=== PATIENT | female | born 1925 | race Caucasian/White ===

== ENCOUNTER 2016-02-28 15:09 | Inpatient (IN) ==
[2016-02-28] MEDS ORDERED: DILTIAZEM 100 MG VIAL.ADD IV STA (15:35)
--- NOTE | 2016-02-28 15:38 | EKG Report ---
Stationary ECG Study [facility] ER Test Date: 02/28/2016 3:25:10 PM Pat Name: FREDDIE COPELAND Department: Room: Gender: F Gas Charger: Kirk Simeon : 1925 Requested by: Anthony Gutierrez Order Number: [id number] Reading MD: RUEL VAIL Intervals [place] Rate: 116 P: 999 MS: 0 QRS: 81 QRSD: 106 T: 259 QT: 277 QTc: 346 Interpretive Statements ATRIAL FIBRILLATION WITH RAPID VENTRICULAR RESPONSE INCOMPLETE RIGHT BUNDLE BRANCH BLOCK VOLTAGE CRITERIA FOR LVH SHORT QT INTERVAL Electronically Signed On 02-28-16 16:41:12 APPRENTICE TECHNICIAN by RUEL VAIL [email or web address]
[2016-02-28] MEDS ORDERED: DILTIAZEM 100 MG VIAL.ADD IV ONE (15:45)
[2016-02-28] MEDS ORDERED: SODIUM CHLORIDE 0.9% 100 ML IV ONE (15:46)
[2016-02-28] MEDS ORDERED: DILTIAZEM 50 MG/10 ML VIAL IV ONE (15:46)
[2016-02-28 15:51] LABS: Basophils % 0.3 % (0.0-0.8); Eosinophils % 0.4 % (0.00-10.9); Hematocrit 33.1 VOL% (35.7-47.0); Hemoglobin 11.3 GM/DL (12.0-16.0); Immature Granulocytes % 0.4 %; Immature Granulocytes Absolute 0.04 #; Lymphocytes # 0.7 10*3/uL (1.4-4.0); Lymphocytes % 6.6 % (21.3-54.2); Mean Corpuscular HGB Conc 34.1 GM/DL (32-36); Mean Corpuscular Hemoglobin 32 PG (27-34); Mean Platelet Volume 10.7 FL (9.6-12.0); Monocytes # 0.8 10*3/uL (0.11-0.8); Monocytes % 7.7 % (1.7-12.7); Neutrophils # 8.7 10*3/uL (1.4-7.4); Neutrophils % 84.6 % (38.7-73.9); Platelet Count 164 10*3/uL (130-400); Red Blood Count 3.52 10*6/uL (3.8-5.5); Red Cell Distribution Width 12.8 % (9.3-17.3); White Blood Count 10.3 10*3/uL (4.5-13.71)
[2016-02-28] MEDS ORDERED: METOPROLOL TARTRATE 5 MG/5 ML VIAL IV STA (15:52)
[2016-02-28] MEDS ORDERED: METOPROLOL TARTRATE 5 MG/5 ML VIAL IV ONE (15:54)
--- NOTE | 2016-02-28 15:55 | XRay Report ---
Portable chest Date:[02/28/2016] Clinical history: Shortness of breath Comparison: 02/27/2016 Technique: Portable AP sitting chest Findings: Persistent cardiomegaly with left subclavian atrioventricular permanent pacemaker. Progressive parenchymal findings especially in the lower lung zones with ill-defined densities especially in the right upper lobe and right lower lung zone. Osteopenia with degenerative changes. Impression: Bullous emphysema with findings which can be seen with mild CHF/diffuse pneumonitis. Indeterminant pulmonary densities and followup chest x-ray recommended. Cardiomegaly with left subclavian atrioventricular permanent pacemaker. PROCEDURE INTERPRETED AT [facility] DEPARTMENT OF RADIOLOGY Final Report Signed by: Dr. Hannah Marshall
[2016-02-28] MEDS ORDERED: DILTIAZEM INJ 100 MG in SODIUM CHLORIDE 0.9% 100 ML IV SCH (16:00)
[2016-02-28 16:05] LABS: INR 1.3; PT Patient Result 13.6 SECS; Partial Thromboplastin Time 36.4 SECS (0-40)
--- NOTE | 2016-02-28 16:11 | Emergency Department Note ---
Kirby Hancock Gwan, am scribing for, and in the presence of, Anthony Bryant MD 15:43 . Annette Hancock James D, MD, personally performed the services described in this documentation, ascribed by Maria Isabel Orr in my presence, and it is both accurate and complete . Arrival - Arrival Chief Complaint: Shortness of Breath Stated Complaint: SOB ED Nursing Triage Note: sob that started. was seen yesterday and dx with bronchitis but states that it is worse. hx: A-fib Mode of Arrival: Wheelchair Limitations: No Limitations Source: Patient, Family, Old Records Reviewed, RN Notes Reviewed Time Seen by Provider: 02/28/16 15:34 - History of Present Illness HPI Narrative: Pt is a 89 y/o female, with a hx of AFib and HTN, who presents to the ED with a c/o SOB and the general feeling of weakness with an onset today. Family stated that the patient called her at 0800 this morning complaining of her SOB and that her back was hurting. Her associated sxs have been swelling in her legs and a LONG. Patient was last seen yesterday and was dx with Bronchitis. Patient confirms that she is followed by Dr. Serra and that he added a new BP mediation last week. She denies any chest pain. No other problems/complaints reported in ED. Onset (ago): day(s) Consistency: constant Severity: moderate Allergies/Adverse Reactions: Allergies Allergy/AdvReac Type Severity Reaction Status Date / Time amiodarone Allergy RASH Verified 05/28/15 08:43 diltiazem [From Cardizem] Allergy RASH Verified 05/28/15 08:43 guaifenesin [From Mucinex] Allergy HIVES Verified 02/27/16 08:43 prednisone Allergy HIVES Verified 02/27/16 08:43 unknown cardiac med Allergy Unknown/Unable Uncoded 05/27/15 10:58 to obtain Home Medications: Home Medications Medication Instructions Recorded Confirmed Type Ascorbic Acid [Vitamin C] 1,000 mg PO DAILY 04/26/15 02/28/16 History Calcium Carbonate/Vitamin D3 1 tablet PO DAILY 04/26/15 02/28/16 History [Calcium 600-Vit D3 800 Tablet] Metoprolol Tartrate 75 mg PO BID W/MEALS 04/26/15 02/28/16 History Mv-Mn/FA/Vit K/Lycop/Lut/Zeaxa 1 capsule PO DAILY 05/27/15 02/28/16 History [Ocuvite Eye + Multi Tablet] Aspirin EC Tab 81 mg PO DAILY 07/28/15 02/28/16 History Potassium Chloride 10 meq PO DAILY 07/28/15 02/28/16 History Apixaban [Eliquis] 2.5 mg PO BID tablet 07/30/15 02/28/16 Rx Furosemide 20 mg PO DAILY PRN #0 07/30/15 02/28/16 Rx amLODIPine [Norvasc] 5 mg PO DAILY #30 tablet 07/30/15 02/28/16 Rx Benzonatate 100 mg PO Q8H PRN 02/27/16 02/28/16 History Benzonatate [Tessalon] 200 mg PO TID #30 capsule 02/27/16 02/28/16 Rx Levofloxacin Tab [Levaquin Tab] 500 mg PO DAILY #7 tablet 02/27/16 02/28/16 Rx Omeprazole [Prilosec] 20 mg PO DAILY 02/27/16 02/28/16 History Pregabalin [Lyrica] 75 mg PO BEDTIME 02/27/16 02/28/16 History hydrALAZINE TAB [Apresoline Tab] 50 mg PO BID 02/27/16 02/28/16 History Review of System - Review of System 12 point system: reviewed and no additional remarkable complaints except as stated - Review of System Constitutional: Present: as per HPI, weakness Head/Ears/Nose/Throat: Present: earache Respiratory: Present: other (short of breathe) Musculoskeletal: Present: as per HPI, other (both legs swelling) Neurological: Present: as per HPI, headache Medical,Surgical,& Family Hx - Medical History Cardio: History of: Cardiac Dysrhythmia (A-fib), Hypertension, Pacemaker HEENT: History of: HEENT Problems (Sinus surgery in past) Endocrine: No history of: Diabetes Mellitus (IDDM), Diabetes Mellitus (NIDDM) Rheumatology: History of;: Fibromyalgia Respiratory: History of: Bronchitis Gastrointestinal: History of: GI Problems (Constipation) Other: History of: Miscellaneous Medical Problems (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.) - Surgical History Cardiac Surgeries: Sugical HX of: Internal Defibrillator (pacemaker) Orthopedic Surgeries: Surgical HX of;: Orthopedic Surgery (arm x 2) - Family History Family History: Reports;: Family Heart Disease, Family Stroke (mom) - Social History Smoking Status: Never smoker Frequency of Alcohol Use: None Type of Drug Use: None Exam Vital Signs: Vital Signs Temperature 97.2 F L 02/28/16 15:10 Pulse Rate 132 H 02/28/16 15:10 Respiratory Rate 18 02/28/16 16:00 Blood Pressure 130/78 02/28/16 15:10 O2 Sat by Pulse Oximetry 90 L 02/28/16 15:10 GENERAL: This is a chronically ill-appearing white female in no apparent distress. VITAL SIGNS: Reviewed HEENT: Head is atraumatic and normocephalic. Pupils are equal round react to light. Extraocular movements are intact. Oropharynx is benign with moist mucous membranes. NECK: Neck is soft and supple without tenderness. There are no masses. There is no lymphadenopathy. LUNGS: Coarse breath sounds in all lung proctor bilaterally. Chest rises symmetrically. There is no chest wall tenderness. CV: Heart is irregularly irregular without murmurs rubs or gallops. ABDOMEN: Abdomen is soft, nontender to palpation. There are no abdominal abnormal masses palpated. There is no organomegaly. Bowel sounds are present and active. SKIN: Skin is warm and dry. No rash. EXTREMITIES: Patient has full range of motion without tenderness. There is no pedal edema. NEUROLOGIC: Awake alert and oriented. Cranial nerves II through XII are grossly intact. Motor is 4 over 5 in all extremities bilaterally. Course - Consultations Consultation #1: Discussed with hospitalist. Patient will be admitted to their service. Time: 16:11 Results - Labs CBC & BMP: 02/28/16 15:40 - EKG EKG results: interpreted by ERMD - Impressions EKG: Atrial fib with RVR, rate 116, incomplete right bundle branch block, possible lateral ischemia, possible inferior ischemia. LVH is present. - Diagnostic Findings Procedure: Chest x-ray: image reviewed by me (Increased pulmonary markings bilaterally, pacemaker in place with wires in place.) Disposition Clinical Impression: Atrial fibrillation with RVR, Congestive heart failure Case discussed with: patient, patient's family Disposition: Still a Patient Condition: Stable Time of Disposition: 16:11
[2016-02-28 16:19] LABS: Albumin 3.1 G/DL (3.4-5.0); Bilirubin,Total 0.9 MG/DL (0.2-1.0); Calcium 9.3 MG/DL (8.5-10.1); Magnesium 1.8 MG/DL (1.8-2.4); Osmolality,Calculated 264.7 MOS/KG (273-304); Potassium 4.2 MMOL/L (3.5-5.1); Total Protein 7.7 G/DL (6.4-8.3)
[2016-02-28 16:20] LABS: Troponin I Only 0.062 NG/ML (0.00-0.045)
[2016-02-28 16:24] LABS: Free T4 (Free Thyroxine) 1.59 NG/DL (0.76-1.46); Thyroid Stimulating Hormone 4.82 uIU/ml (0.358-3.74)
[2016-02-28] MEDS ORDERED: ONDANSETRON 4 MG/2 ML VIAL IV PRN (17:40)
[2016-02-28] MEDS ORDERED: LACTULOSE 20 GM/30 ML UDCUP PO PRN (17:40)
[2016-02-28] MEDS ORDERED: MORPHINE 2 MG/1 ML SYRINGE IV PRN (17:40)
[2016-02-28] MEDS ORDERED: SODIUM CHLORIDE 0.9% 1,000 ML IV SCH (18:00)
--- NOTE | 2016-02-28 18:37 | Hospitalist History & Physical ---
<Dalia Hare N - Last Filed: 02/28/16 18:33> Assessment and Plan - Time spent with patient Time spent with patient: Greater than 30 minutes (1) Atrial fibrillation with RVR Status: Acute Assessment and plan: Admit to telemetry Consult Dr. Serra, ELEANOR DVT prophylaxis with VTE only Already on Eliquis at home Lopressor IV until evaluated by [facility] Rocephin IV Xopenex treatments Resume home medicines as appropriate PRN meds defer steroid decision to Dr. Medina due to prednisone allergy further plan and addendum to follow per Dr. Medina Current Visit: Yes (2) Bronchitis Status: Acute Current Visit: No History of Present Illness Chief complaint: afib, bronchitis History of present illness: Ms. Felipe is a 89 year old female who presents to the ER today with weakness, cough, shortness of breath, palpitations. She states that she was seen here in the ER yesterday for increasing shortness of breath and was diagnosed with bronchitis. States that she went home and only began to feel worse, this morning became increasingly short of breath and felt like she could not catch her breath. She presented here today and was found to be in A. fib and increased rate of around 130. She is allergic to amiodarone and diltiazem, was given IV Lopressor, right is more controlled male around low 100s. She does have some bilateral wheezing and bibasilar crackles. Worse on expiration. She denies prior lung history. She denies recurrent pneumonia, but states that she has bronchitis several times a year. She is on home hospice due to her cardiac history, they have brought a concentrator to her home and she has been using home O2 as needed, not routinely. She has not been using the type of nebulizers at home. Past medical history includes atrial fibrillation, coronary artery disease, pacemaker placement, and hypertension. Dr. Serra is her cost controller , Dr. Burnett is her PCP. Past surgical history includes pacemaker placement. She does not smoke, drink, or use drugs. She lives alone and is able to take care of herself well with the help of her daughters who live nearby. She does use a cane to get around at home. After discussing all of this with her, she is noted to have some exertional dyspnea. She agrees that her shortness of breath is much worse than it has ever been before. She does mention to me that she would like to remain a DNR throughout this hospital stay. At present, denies productive cough, chest pain, fever, chills, abdominal pain, nausea vomiting diarrhea, dysuria, edema. Home Medications Medication Instructions Recorded Confirmed Type Ascorbic Acid [Vitamin C] 1,000 mg PO DAILY 04/26/15 02/28/16 History Calcium Carbonate/Vitamin D3 1 tablet PO DAILY 04/26/15 02/28/16 History [Calcium 600-Vit D3 800 Tablet] Metoprolol Tartrate 75 mg PO BID W/MEALS 04/26/15 02/28/16 History Mv-Mn/FA/Vit K/Lycop/Lut/Zeaxa 1 capsule PO DAILY 05/27/15 02/28/16 History [Ocuvite Eye + Multi Tablet] Aspirin EC Tab 81 mg PO DAILY 07/28/15 02/28/16 History Potassium Chloride 10 meq PO DAILY 07/28/15 02/28/16 History Apixaban [Eliquis] 2.5 mg PO BID tablet 07/30/15 02/28/16 Rx amLODIPine [Norvasc] 5 mg PO DAILY #30 tablet 07/30/15 02/28/16 Rx Benzonatate 100 mg PO Q8H PRN 02/27/16 02/28/16 History Benzonatate [Tessalon] 200 mg PO TID #30 capsule 02/27/16 02/28/16 Rx Levofloxacin Tab [Levaquin Tab] 500 mg PO DAILY #7 tablet 02/27/16 02/28/16 Rx Omeprazole [Prilosec] 20 mg PO DAILY 02/27/16 02/28/16 History Pregabalin [Lyrica] 75 mg PO BEDTIME 02/27/16 02/28/16 History hydrALAZINE TAB [Apresoline Tab] 50 mg PO BID 02/27/16 02/28/16 History Furosemide 20 mg PO DAILY 02/28/16 02/28/16 History Hydrocodone/Acetaminophen 1 tablet PO Q4H PRN 02/28/16 02/28/16 History [Hydrocodon-Acetaminophen 5-325] Allergies Allergy/AdvReac Type Severity Reaction Status Date / Time amiodarone Allergy RASH Verified 05/28/15 08:43 diltiazem [From Cardizem] Allergy RASH Verified 05/28/15 08:43 guaifenesin [From Mucinex] Allergy HIVES Verified 02/27/16 08:43 prednisone Allergy HIVES Verified 02/27/16 08:43 unknown cardiac med Allergy Unknown/Unable Uncoded 05/27/15 10:58 to obtain Medical,Surgical,& Family Hx - Medical History Cardio: History of: Cardiac Dysrhythmia (A-fib), Hypertension, Pacemaker HEENT: History of: HEENT Problems (Sinus surgery in past) Endocrine: No history of: Diabetes Mellitus (IDDM), Diabetes Mellitus (NIDDM) Rheumatology: History of;: Fibromyalgia Respiratory: History of: Bronchitis Gastrointestinal: History of: GI Problems (Constipation) Other: History of: Miscellaneous Medical Problems (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.) - Surgical History Cardiac Surgeries: Sugical HX of: Internal Defibrillator (pacemaker) Orthopedic Surgeries: Surgical HX of;: Orthopedic Surgery (bilateral broken wrists) - Family History Family History: Reports;: Family Heart Disease, Family Stroke (mom) - Social History Smoking Status: Never smoker Frequency of Alcohol Use: None Type of Drug Use: None 12 point system: reviewed and no additional remarkable complaints except as stated Exam - Constitutional Vitals: Period Temp Pulse Resp BP Sys/Quintana Pulse Ox Last 24 Hr 97.8 F 105 20 130/97 95 General appearance: mild distress (exertional dyspnea) - Head Head exam: Present: normal inspection, normocephalic - Eye Eye exam: Present: EOMI. Absent: scleral icterus Pupils: Present: ZULEIKA, normal accommodation - ENT ENT exam: Present: normal exam, normal oropharynx - Neck Neck exam: Present: normal inspection. Absent: lymphadenopathy - Respiratory Respiratory exam: Present: rales (basilar), wheezes (bilaterally, worse with expiration but present on inspiration as well) - Cardiovascular Cardiovascular exam: Present: irregular rhythm (with pacemaker, A. fib RVR at a rate of 100-120), tachycardia - GI/Abdominal GI/Abdominal exam: Present: normal bowel sounds, soft. Absent: tenderness - Extremities Exam Extremities exam: Present: normal inspection, full ROM. Absent: edema - Back Exam Back exam: Present: normal inspection. Absent: muscle spasm - Neurological Exam Neurological exam: Present: alert, oriented X3 - Psychiatric Psychiatric exam: Present: normal affect, normal mood - Skin Skin exam: Present: normal color, warm, dry Results - Labs CBC & BMP: 02/28/16 15:40 02/28/16 15:40 Lab Results: I have reviewed the past 24 hour labs Quality Measures - VTE Contraindication to Pharmacological VTE Prophylaxis: Already on Theraputic Agent , No Prophylaxis Needed <Alexia Medina - Last Filed: 02/28/16 20:36> History of Present Illness History of present illness: Ms. Felipe is a 89 year old female w h/o CAD, pacemaker placement yrs ago, afib on A/C, and stoke presented to ER with progressive SOB over past week. In ER pt found to be in afib w rvr. Pt earlier had SOB but denies CP or N/V or fever/chills. pt a&ox3, neck no jvd, lung intermittent crackles at lung bases no wheezing, heart IRR w systolic murmur, [place] mild edema b/l, abd soft NT, skin warm/dry. A/P: Afib w rvr: cardio consulted, A/C, BB possible bronchitis: abx, BDTx CHF AI Exam - Constitutional Vitals: Period Temp Pulse Resp BP Sys/Quintana Pulse Ox Last 24 Hr 97.5 F-97.8 F 105-109 20-20 130-152/90-97 95-97 Results - Labs CBC & BMP: 02/28/16 15:40 02/28/16 15:40
[2016-02-28] MEDS: cefTRIAXone 1,000 MG in SODIUM CHLORIDE 0.9% 100 ML IV SCH (19:07)
--- NOTE | 2016-02-28 19:54 | Cardiology Consult Note ---
Assessment and Plan (1) Atrial fibrillation Status: Chronic Assessment and plan: 89-year-old female, CAD, status post POBA, HTN, AF, DDD PM, history of CVAs. Admitted with shortness of breath, suspected bronchitis, A. fib/RVR, lower extremity swelling. - CAD. Continue aspirin, start Crestor 10 mg qhs. Borderline elevated troponin likely demand ischemia, not symptomatic currently. D/c hydralazine. -AF/RVR. Increase metoprolol to 100 mg twice a day, continue digoxin 0.125 mg daily. Cont Eliquis. -PM. Normal demand DDD PM function. -BP. Currently well controlled. Can add amlodipine if becomes hypertensive -SOB. Check DVT study. Her symptoms already improved with rate control and bronchodilators, she appears to be euvolemic. History of moderate/severe TR. D/ c IVF. resume Lasix 20 mg qd. 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 Felipe is a 89 year old female followed by Dr. Serra. She is on home hospice and DNR. She has a history of CAD, status post POBA, sick sinus syndrome, atrial fibrillation, status post dual-chamber pacemaker placement. Hypertension, regimen was recently adjusted and hydralazine was added. She felt progressive shortness of breath, lower extremity swelling. Came to the ER yesterday for evaluation. She was also having cough without sputum. She was discharged home , but due to progressive shortness of breath, she saw Dr. Burnett today and again was found to be in A. fib/RVR and was sent back to the ER today, she was admitted. Her heart rate was elevated in the 130s range of motion admission. She complains of bilateral lower extremity swelling, otherwise denies any chest pain, fevers, diarrhea, she is compliant with her medications. She is on adequate for atrial fibrillation, no recent bleeding problems. In the past, she was in Coumadin, had multiple CVAs, subtherapeutic INRs. She has ADRs documented in [facility] and [facility] EMRs for amiodarone, Cardizem and metoprolol. Actually, metoprolol is her chronic medication and had no issues with it. She got Cardizem today in the emergency room, without issues. CC: Alexia Medina - Home Medications and Allergies Home Medications: Home Medications Medication Instructions Recorded Confirmed Type Ascorbic Acid [Vitamin C] 1,000 mg PO DAILY 04/26/15 02/28/16 History Calcium Carbonate/Vitamin D3 1 tablet PO DAILY 04/26/15 02/28/16 History [Calcium 600-Vit D3 800 Tablet] Metoprolol Tartrate 75 mg PO BID W/MEALS 04/26/15 02/28/16 History Mv-Mn/FA/Vit K/Lycop/Lut/Zeaxa 1 capsule PO DAILY 05/27/15 02/28/16 History [Ocuvite Eye + Multi Tablet] Aspirin EC Tab 81 mg PO DAILY 07/28/15 02/28/16 History Potassium Chloride 10 meq PO DAILY 07/28/15 02/28/16 History Apixaban [Eliquis] 2.5 mg PO BID tablet 07/30/15 02/28/16 Rx amLODIPine [Norvasc] 5 mg PO DAILY #30 tablet 07/30/15 02/28/16 Rx Benzonatate 100 mg PO Q8H PRN 02/27/16 02/28/16 History Benzonatate [Tessalon] 200 mg PO TID #30 capsule 02/27/16 02/28/16 Rx Levofloxacin Tab [Levaquin Tab] 500 mg PO DAILY #7 tablet 02/27/16 02/28/16 Rx Omeprazole [Prilosec] 20 mg PO DAILY 02/27/16 02/28/16 History Pregabalin [Lyrica] 75 mg PO BEDTIME 02/27/16 02/28/16 History hydrALAZINE TAB [Apresoline Tab] 50 mg PO BID 02/27/16 02/28/16 History Furosemide 20 mg PO DAILY 02/28/16 02/28/16 History Hydrocodone/Acetaminophen 1 tablet PO Q4H PRN 02/28/16 02/28/16 History [Hydrocodon-Acetaminophen 5-325] Allergies/Adverse Reactions: Allergies Allergy/AdvReac Type Severity Reaction Status Date / Time amiodarone Allergy RASH Verified 05/28/15 08:43 diltiazem [From Cardizem] Allergy RASH Verified 05/28/15 08:43 guaifenesin [From Mucinex] Allergy HIVES Verified 02/27/16 08:43 prednisone Allergy HIVES Verified 02/27/16 08:43 unknown cardiac med Allergy Unknown/Unable Uncoded 05/27/15 10:58 to obtain 12 point system: reviewed and no additional remarkable complaints except as stated Medical,Surgical,& Family Hx - Medical History Cardio: History of: Cardiac Dysrhythmia (A-fib), Hypertension, Pacemaker HEENT: History of: HEENT Problems (Sinus surgery in past) Endocrine: No history of: Diabetes Mellitus (IDDM), Diabetes Mellitus (NIDDM) Rheumatology: History of;: Fibromyalgia Respiratory: History of: Bronchitis Gastrointestinal: History of: GI Problems (Constipation) Other: History of: Miscellaneous Medical Problems (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.) - Surgical History Cardiac Surgeries: Sugical HX of: Internal Defibrillator (pacemaker) Orthopedic Surgeries: Surgical HX of;: Orthopedic Surgery (bilateral broken wrists) - Family History Family History: Reports;: Family Heart Disease, Family Stroke (mom) - Social History Smoking Status: Never smoker Frequency of Alcohol Use: None Type of Drug Use: None Physical Examination Vital Signs Temp Pulse Resp BP Pulse Ox 97.2 F L 132 H 18 130/78 90 L 02/28/16 15:10 02/28/16 15:10 02/28/16 15:10 02/28/16 15:10 02/28/16 15:10 General: Present: Appears Well, No Apparent Distress HEENT: Present: Normocephaly, Mucus Membranes Moist Neck: Present: No JVD/HJR, No Masses, No Lymphadenopathy Cardiac: Present: Irregularly Regular, Systolic Murmur Lungs: Present: Decreased Breath Sounds, No Wheezes, No Rhonchi Neuro: Present: Grossly Intact Abdomen: Present: Soft, Active Bowel Sounds Musculoskeletal: Present: No Pain Extremities: Present: +1 Edema Result/EKG - Labs CBC & BMP: 02/28/16 15:40 02/28/16 15:40 Lab Results: I have reviewed the past 24 hour labs - EKG EKG results: interpreted by me Quality Measures - VTE Contraindication to Pharmacological VTE Prophylaxis: Already on Theraputic Agent , No Prophylaxis Needed Specialty Discharge - Follow Up or Referrals - Discharge Medications No Action Metoprolol Tartrate 75 mg PO BID W/MEALS Calcium Carbonate/Vitamin D3 [Calcium 600-Vit D3 800 Tablet] 1 tablet PO DAILY Ascorbic Acid [Vitamin C] 1,000 mg PO DAILY Mv-Mn/FA/Vit K/Lycop/Lut/Zeaxa [Ocuvite Eye + Multi Tablet] 1 capsule PO DAILY Potassium Chloride 10 meq PO DAILY Aspirin EC Tab 81 mg PO DAILY Apixaban [Eliquis] 2.5 mg PO BID tablet amLODIPine [Norvasc] 5 mg PO DAILY #30 tablet Omeprazole [Prilosec] 20 mg PO DAILY Pregabalin [Lyrica] 75 mg PO BEDTIME Benzonatate [Tessalon] 200 mg PO TID #30 capsule hydrALAZINE TAB [Apresoline Tab] 50 mg PO BID Benzonatate 100 mg PO Q8H PRN PRN Reason: Cough Levofloxacin Tab [Levaquin Tab] 500 mg PO DAILY #7 tablet Furosemide 20 mg PO DAILY Hydrocodone/Acetaminophen [Hydrocodon-Acetaminophen 5-325] 1 tablet PO Q4H PRN PRN Reason: Pain Moderate (4-7)
[2016-02-28] MEDS: LEVALBUTEROL 1.25 MG/3 ML NEB RESP TX SCH (20:17)
[2016-02-28] MEDS: ROSUVASTATIN 10 MG TABLET PO SCH (22:53)
[2016-02-28] MEDS: METOPROLOL SUCCINATE XL 100 MG TABLET PO SCH (22:53)
[2016-02-28] MEDS: APIXABAN 2.5 MG TABLET PO SCH (22:53)
[2016-02-28] MEDS: ACETAMINOPHEN 325 MG TABLET PO PRN (22:57)
[2016-02-29] MEDS: LEVALBUTEROL 1.25 MG/3 ML NEB RESP TX SCH ×4 (02:11→23:59)
--- NOTE | 2016-02-29 02:40 | EKG Report ---
Stationary ECG Study [facility] Test Date: 02/29/2016 2:38:05 AM Pat Name: FREDDIE COPELAND Department: Room: 286 Gender: F Occupational Health Rn: DIONISIO : 1925 Requested by: Dalia Hare Order Number: [id number] Reading MD: RUEL VAIL Intervals [place] Rate: 90 P: 999 CA: 0 QRS: 73 QRSD: 92 T: 68 QT: 298 QTc: 346 Interpretive Statements ATRIAL FIBRILLATION WITH ABERRANT CONDUCTION OR VENTRICULAR PREMATURE COMPLEXES and intermittent v pacing INCOMPLETE RIGHT BUNDLE BRANCH BLOCK ABNORMAL RHYTHM ECG Electronically Signed On 02-29-16 05:46:32 WEIGHT TESTER by RUEL VAIL [email or web address]
[2016-02-29 04:57] LABS: Basophils % 0.4 % (0.0-0.8); Eosinophils # 0.1 10*3/uL (0.0-0.87); Hematocrit 30.2 VOL% (35.7-47.0); Immature Granulocytes % 0.6 %; Immature Granulocytes Absolute 0.05 #; Lymphocytes % 12.4 % (21.3-54.2); Mean Corpuscular HGB Conc 33.1 GM/DL (32-36); Mean Corpuscular Hemoglobin 31 PG (27-34); Mean Corpuscular Volume 94.4 FL (87-102); Mean Platelet Volume 10.8 FL (9.6-12.0); Monocytes # 0.9 10*3/uL (0.11-0.8); Monocytes % 10.7 % (1.7-12.7); Neutrophils # 5.9 10*3/uL (1.4-7.4); Neutrophils % 74.9 % (38.7-73.9); Platelet Count 159 10*3/uL (130-400); Red Cell Distribution Width 12.7 % (9.3-17.3); White Blood Count 7.9 10*3/uL (4.5-13.71)
[2016-02-29 05:29] LABS: Albumin 2.8 G/DL (3.4-5.0); Bilirubin,Total 0.8 MG/DL (0.2-1.0); Calcium 8.7 MG/DL (8.5-10.1); Osmolality,Calculated 263.5 MOS/KG (273-304); Potassium 4.4 MMOL/L (3.5-5.1); Total Protein 6.4 G/DL (6.4-8.3)
--- NOTE | 2016-02-29 08:57 | Ultrasound Report ---
History: Swelling of the legs. Shortness of breath Date: 02/29/2016 Study: Bilateral lower extremity color flow venous Doppler study Comparison exam: No previous Color Doppler, wave form analysis, and compression analysis of the deep veins of both lower extremities from the common femoral vein level through the popliteal vein level shows that the veins are readily compressible. There is no abnormal intraluminal material to suggest thrombus. Waveform analysis is unremarkable. Ultrasound images were captured and archived Impression: No evidence of deep venous thrombosis. No significant focal abnormality PROCEDURE INTERPRETED AT [facility] DEPARTMENT OF RADIOLOGY Final Report Signed by: Dr. Brittany Castaneda
--- NOTE | 2016-02-29 09:03 | EKG Report ---
Stationary ECG Study [facility] Test Date: 02/29/2016 9:01:50 AM Pat Name: FREDDIE COPELAND Department: Room: 286 Gender: F Data Capture Clerk: BRENDAN : [id number] Requested by: Dalia Hare Order Number: [id number] Reading MD: RUEL VAIL Intervals [place] Rate: 107 P: 999 TX: 0 QRS: 52 QRSD: 102 T: 3 QT: 321 QTc: 383 Interpretive Statements ATRIAL FIBRILLATION WITH RAPID VENTRICULAR RESPONSE INCOMPLETE RIGHT BUNDLE BRANCH BLOCK ABNORMAL RHYTHM ECG Electronically Signed On 02-29-16 20:49:[address] JUDGE by RUEL VAIL [email or web address]
[2016-02-29] MEDS: FUROSEMIDE 20 MG TABLET PO SCH (09:56)
[2016-02-29] MEDS: PANTOPRAZOLE 40 MG TABLET PO SCH (09:56)
[2016-02-29] MEDS: APIXABAN 2.5 MG TABLET PO SCH ×2 (09:56→21:59)
[2016-02-29] MEDS: METOPROLOL SUCCINATE XL 100 MG TABLET PO SCH ×2 (09:56→21:59)
[2016-02-29] MEDS: ASPIRIN EC 81 MG TABLET PO SCH (09:56)
[2016-02-29] MEDS: ACETAMINOPHEN 325 MG TABLET PO PRN (10:01)
--- NOTE | 2016-02-29 11:01 | Hospitalist Progress Note ---
Assessment and Plan (1) Atrial fibrillation with RVR Status: Acute Assessment and plan: Appreciate cardiology recommendation, continue with meds Current Visit: No (2) Bronchitis Status: Acute Assessment and plan: Clinically improving, continue with antibiotics Current Visit: No (3) Aortic insufficiency Status: Chronic Current Visit: No (4) Congestive heart failure Status: Acute Current Visit: Yes (5) Normocytic anemia Status: Acute Assessment and plan: Last hemoglobin 10, monitor H/H Current Visit: Yes Hospitalist: Subjective Interval history: Patient feeling better today and SOB and coughing have improved. Patient denies chest pain or headache or blurred vision or nausea or vomiting or fever or chills. No numbness or focal weakness. Exam - Constitutional Vitals: Period Temp Pulse Resp BP Sys/Quintana Pulse Ox Last 24 Hr 97.4 F-98.7 F 67-126 18-20 130-152/75-103 91-98 Exam: General: A and O 3, NAD Neck: No JVD Heart S1-S2 present, IRR, systolic murmur Lung: CTA, no wheezing Abdomen: Soft nontender Extremity: Mild lower extremity edema, no cyanosis Skin: Warm and dry Psychiatric: Cooperative and mood appropriate to occasion Results - Labs CBC & BMP: 02/29/16 04:39 02/29/16 04:39 Quality Measures - VTE Contraindication to Pharmacological VTE Prophylaxis: Already on Theraputic Agent , No Prophylaxis Needed Specialty Discharge - Follow Up or Referrals - Discharge Medications No Action Metoprolol Tartrate 75 mg PO BID W/MEALS Calcium Carbonate/Vitamin D3 [Calcium 600-Vit D3 800 Tablet] 1 tablet PO DAILY Ascorbic Acid [Vitamin C] 1,000 mg PO DAILY Mv-Mn/FA/Vit K/Lycop/Lut/Zeaxa [Ocuvite Eye + Multi Tablet] 1 capsule PO DAILY Potassium Chloride 10 meq PO DAILY Aspirin EC Tab 81 mg PO DAILY Apixaban [Eliquis] 2.5 mg PO BID tablet amLODIPine [Norvasc] 5 mg PO DAILY #30 tablet Omeprazole [Prilosec] 20 mg PO DAILY Pregabalin [Lyrica] 75 mg PO BEDTIME Benzonatate [Tessalon] 200 mg PO TID #30 capsule hydrALAZINE TAB [Apresoline Tab] 50 mg PO BID Benzonatate 100 mg PO Q8H PRN PRN Reason: Cough Levofloxacin Tab [Levaquin Tab] 500 mg PO DAILY #7 tablet Furosemide 20 mg PO DAILY Hydrocodone/Acetaminophen [Hydrocodon-Acetaminophen 5-325] 1 tablet PO Q4H PRN PRN Reason: Pain Moderate (4-7)
[2016-02-29] MEDS: DIGOXIN 0.125 MG TABLET PO SCH (14:22)
--- NOTE | 2016-02-29 17:34 | Cardiology Progress Note ---
Assessment and Plan (1) Atrial fibrillation Status: Chronic Assessment and plan: 89-year-old female, CAD, status post POBA, HTN, AF, DDD PM, history of CVAs. Admitted with shortness of breath, suspected bronchitis, A. fib/RVR, lower extremity swelling. No DVT. - CAD. Continue aspirin, Crestor 10 mg qhs. Borderline elevated troponin likely demand ischemia, not symptomatic currently. D/-dc hydralazine. -AF/RVR. Cont metoprolol 100 mg twice a day, continue digoxin 0.125 mg daily. Cont Eliquis. -PM. Normal demand DDD PM function. -BP. Currently well controlled. Can add amlodipine if becomes hypertensive -SOB. Bronchitis improving. History of moderate/severe TR. Lasix 20 mg qd. 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 Af, heart rate better controlled, now trending around 100s. Exam (Progress Note) - Constitutional Vitals: Period Temp Pulse Resp BP Sys/Quintana Pulse Ox Last 24 Hr 97.4 F-98.8 F 67-126 18-20 130-152/75-103 18-98 General appearance: normal weight - Head Head exam: Present: normal inspection - Eye Eye exam: Absent: conjunctival injection Pupils: Absent: dilated - ENT ENT exam: Present: normal external ear exam - Neck Neck exam: Present: normal inspection - Respiratory Respiratory exam: Present: decreased breath sounds, prolonged expiratory phase - Cardiovascular Cardiovascular exam: Present: regular rate and rhythm, systolic murmur, tachycardia - GI/Abdominal GI/Abdominal exam: Present: normal bowel sounds - Extremities Exam Extremities exam: Present: normal inspection, normal capillary refill - Back Exam Back exam: Present: normal inspection - Neurological Exam Neurological exam: Present: alert, oriented X3 - Psychiatric Psychiatric exam: Present: normal affect, normal mood - Skin Skin exam: Present: normal color, warm. Absent: cyanosis Result/EKG - Labs CBC & BMP: 02/29/16 04:39 02/29/16 04:39 Lab Results: I have reviewed the past 24 hour labs Labs: Laboratory Results - last 24 hr 02/29/16 02/29/16 04:39 04:39 WBC 7.9 RBC 3.20 L Hgb 10.0 L Hct 30.2 L MCV 94.4 MCH 31 MCHC 33.1 RDW 12.7 Plt Count 159 MPV 10.8 Neut % (Auto) 74.9 H Lymph % (Auto) 12.4 L Mcleod % (Auto) 10.7 Eos % (Auto) 1.0 Baso % (Auto) 0.4 Neut # (Auto) 5.9 Lymph # (Auto) 1.0 L Mcleod # (Auto) 0.9 H Eos # (Auto) 0.1 Baso # (Auto) 0.0 Immature Gran % 0.6 Nucleated RBC % 0.0 Immature Gran # 0.05 Nucleated RBCs # 0.00 Sodium 132 L Potassium 4.4 Chloride 95 L Carbon Dioxide 28 Anion Gap 13.4 BUN 13 Creatinine 0.80 GFR Calculation 65 BUN/Creatinine Ratio 16.00 Glucose 97 Calculated Osmolality 263.5 L Calcium 8.7 Total Bilirubin 0.80 AST 18 ALT 13 Alkaline Phosphatase 57 Total Protein 6.4 Albumin 2.8 L Globulin 3.6 H Albumin/Globulin Ratio 0.7 L - EKG EKG results: interpreted by me Quality Measures - VTE Contraindication to Pharmacological VTE Prophylaxis: Already on Theraputic Agent , No Prophylaxis Needed Specialty Discharge - Follow Up or Referrals - Discharge Medications No Action Metoprolol Tartrate 75 mg PO BID W/MEALS Calcium Carbonate/Vitamin D3 [Calcium 600-Vit D3 800 Tablet] 1 tablet PO DAILY Ascorbic Acid [Vitamin C] 1,000 mg PO DAILY Mv-Mn/FA/Vit K/Lycop/Lut/Zeaxa [Ocuvite Eye + Multi Tablet] 1 capsule PO DAILY Potassium Chloride 10 meq PO DAILY Aspirin EC Tab 81 mg PO DAILY Apixaban [Eliquis] 2.5 mg PO BID tablet amLODIPine [Norvasc] 5 mg PO DAILY #30 tablet Omeprazole [Prilosec] 20 mg PO DAILY Pregabalin [Lyrica] 75 mg PO BEDTIME Benzonatate [Tessalon] 200 mg PO TID #30 capsule hydrALAZINE TAB [Apresoline Tab] 50 mg PO BID Benzonatate 100 mg PO Q8H PRN PRN Reason: Cough Levofloxacin Tab [Levaquin Tab] 500 mg PO DAILY #7 tablet Furosemide 20 mg PO DAILY Hydrocodone/Acetaminophen [Hydrocodon-Acetaminophen 5-325] 1 tablet PO Q4H PRN PRN Reason: Pain Moderate (4-7)
[2016-02-29] MEDS: BENZONATATE 100 MG CAPSULE PO SCH ×2 (18:34→21:59)
[2016-02-29] MEDS: cefTRIAXone 1,000 MG in SODIUM CHLORIDE 0.9% 100 ML IV SCH (18:39)
[2016-02-29] MEDS: ROSUVASTATIN 10 MG TABLET PO SCH (21:59)
[2016-03-01] MEDS: LEVALBUTEROL 1.25 MG/3 ML NEB RESP TX SCH ×4 (03:26→18:58)
[2016-03-01] MEDS: METOPROLOL SUCCINATE XL 100 MG TABLET PO SCH ×2 (09:19→20:26)
[2016-03-01] MEDS: APIXABAN 2.5 MG TABLET PO SCH ×2 (09:19→20:26)
[2016-03-01] MEDS: BENZONATATE 100 MG CAPSULE PO SCH ×3 (09:19→20:26)
[2016-03-01] MEDS: ASPIRIN EC 81 MG TABLET PO SCH (09:19)
[2016-03-01] MEDS: FUROSEMIDE 20 MG TABLET PO SCH (09:20)
[2016-03-01] MEDS: PANTOPRAZOLE 40 MG TABLET PO SCH (09:20)
[2016-03-01] MEDS: DIGOXIN 0.125 MG TABLET PO SCH (14:07)
--- NOTE | 2016-03-01 17:23 | Hospitalist Progress Note ---
Assessment and Plan (1) Atrial fibrillation with RVR Status: Acute Assessment and plan: Appreciate cardiology recommendation, continue with meds, improving Current Visit: No (2) Bronchitis Status: Acute Assessment and plan: Clinically improving, continue with antibiotics Current Visit: No (3) Aortic insufficiency Status: Chronic Current Visit: No (4) Congestive heart failure Status: Acute Current Visit: Yes (5) Normocytic anemia Status: Acute Assessment and plan: Last hemoglobin 10, monitor H/H Current Visit: Yes Hospitalist: Subjective Interval history: Patient feeling better today and her shortness of breath has improved but she still coughs occasionally. Patient will be evaluated by physical therapy today. Patient denies chest pain or nausea or vomiting or fever or chills or edema demonstrated or hemoptysis or melena or hematochezia or numbness. Exam - Constitutional Vitals: Period Temp Pulse Resp BP Sys/Quintana Pulse Ox Last 24 Hr 97 F-99.6 F 68-106 16-20 117-138/56-83 18-98 Exam: General: A and O 3, NAD Neck: No JVD Heart S1-S2 present, IRR, systolic murmur Lung: CTA, no wheezing Abdomen: Soft nontender Extremity: Mild lower extremity edema, no cyanosis Skin: Warm and dry Psychiatric: Cooperative and mood appropriate to occasion Results - Labs CBC & BMP: 02/29/16 04:39 02/29/16 04:39 Quality Measures - VTE Contraindication to Pharmacological VTE Prophylaxis: Already on Theraputic Agent , No Prophylaxis Needed
[2016-03-01] MEDS: cefTRIAXone 1,000 MG in SODIUM CHLORIDE 0.9% 100 ML IV SCH (18:14)
[2016-03-01] MEDS: ROSUVASTATIN 10 MG TABLET PO SCH (20:26)
[2016-03-01] MEDS ORDERED: FUROSEMIDE 40 MG/4 ML VIAL IV ONE (21:00)
--- NOTE | 2016-03-01 21:03 | Cardiology Progress Note ---
Heriberto Hancock Lauren, RN, am scribing for, and in the presence of, Reji Gray MD 21: 03. Assessment and Plan - Time spent with patient Time spent with patient: Less than 30 minutes (1) Atrial fibrillation Status: Chronic Assessment and plan: 89-year-old female, CAD, status post POBA, HTN, AF, DDD PM, history of CVAs. Admitted with shortness of breath, suspected bronchitis, A. fib/RVR, lower extremity swelling. No DVT. - CAD. Continue aspirin, Crestor 10 mg qhs. Borderline elevated troponin likely demand ischemia, not symptomatic currently. -AF/RVR. Cont metoprolol 100 mg twice a day, continue digoxin 0.125 mg daily. Cont Eliquis. Rate better controlled. -PM. Normal demand DDD PM function. -BP. Currently well controlled. Can add amlodipine if becomes hypertensive -SOB. Bronchitis. History of moderate/severe TR. Increase Lasix to 40 mg IV twice a day., On exam, she is more congested today. 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 Felipe reports she is feeling not better today. She remains in atrial fibrillation, rate is better controlled. Rates are trending between 60's-80's today. Nebs caused nausea. Exam (Progress Note) - Constitutional Vitals: Period Temp Pulse Resp BP Sys/Quintana Pulse Ox Last 24 Hr 97 F-99.2 F 68-106 16-20 117-140/56-83 18-98 General appearance: normal weight, no acute distress - Head Head exam: Present: normal inspection, normocephalic - Eye Eye exam: Absent: conjunctival injection, periorbital swelling Pupils: Absent: dilated, unequal - ENT ENT exam: Present: normal exam, normal external ear exam - Neck Neck exam: Present: normal inspection. Absent: tenderness - Respiratory Respiratory exam: Present: decreased breath sounds, prolonged expiratory phase - Cardiovascular Cardiovascular exam: Present: irregular rhythm, systolic murmur. Absent: bradycardia, tachycardia - GI/Abdominal GI/Abdominal exam: Present: normal bowel sounds, soft. Absent: tenderness - Extremities Exam Extremities exam: Present: normal inspection, edema (1+), other (2+ DP pulses bilaterally) - Back Exam Back exam: Present: normal inspection. Absent: vertebral tenderness - Neurological Exam Neurological exam: Present: alert, oriented X3, other (grossly intact, no resting or essential tremor) - Psychiatric Psychiatric exam: Present: normal affect, normal mood - Skin Skin exam: Present: normal color, warm, dry. Absent: cyanosis Result/EKG - Labs CBC & BMP: 02/29/16 04:39 02/29/16 04:39 Lab Results: I have reviewed the past 24 hour labs - EKG EKG results: interpreted by me EKG shows: atrial fibrillation (with occasional PVC) Quality Measures - VTE Contraindication to Pharmacological VTE Prophylaxis: Already on Theraputic Agent , No Prophylaxis Needed Isaac Hancock Attila, MD, personally performed the services described in this documentation, ascribed by Esther Louis RN in my presence, and it is both accurate and complete .
[2016-03-02] MEDS: LEVALBUTEROL 1.25 MG/3 ML NEB RESP TX SCH ×4 (00:46→20:05)
[2016-03-02 05:08] LABS: Basophils # 0.1 10*3/uL (0.0-0.2); Basophils % 0.9 % (0.0-0.8); Eosinophils # 0.2 10*3/uL (0.0-0.87); Eosinophils % 3.2 % (0.00-10.9); Hematocrit 33.5 VOL% (35.7-47.0); Hemoglobin 10.9 GM/DL (12.0-16.0); Immature Granulocytes % 0.3 %; Immature Granulocytes Absolute 0.02 #; Lymphocytes # 1.2 10*3/uL (1.4-4.0); Lymphocytes % 18.4 % (21.3-54.2); Mean Corpuscular HGB Conc 32.5 GM/DL (32-36); Mean Corpuscular Hemoglobin 31 PG (27-34); Mean Corpuscular Volume 95.4 FL (87-102); Mean Platelet Volume 10.9 FL (9.6-12.0); Monocytes # 0.9 10*3/uL (0.11-0.8); Monocytes % 13.5 % (1.7-12.7); Neutrophils # 4.2 10*3/uL (1.4-7.4); Neutrophils % 63.7 % (38.7-73.9); Platelet Count 179 10*3/uL (130-400); Red Blood Count 3.51 10*6/uL (3.8-5.5); Red Cell Distribution Width 12.8 % (9.3-17.3); White Blood Count 6.6 10*3/uL (4.5-13.71)
[2016-03-02 05:36] LABS: Calcium 8.5 MG/DL (8.5-10.1); Osmolality,Calculated 272.8 MOS/KG (273-304); Potassium 4.7 MMOL/L (3.5-5.1)
[2016-03-02] MEDS: ASPIRIN EC 81 MG TABLET PO SCH (08:12)
[2016-03-02] MEDS: APIXABAN 2.5 MG TABLET PO SCH ×2 (08:12→20:40)
[2016-03-02] MEDS: FUROSEMIDE 40 MG/4 ML VIAL IV SCH ×2 (08:12→17:14)
[2016-03-02] MEDS: PANTOPRAZOLE 40 MG TABLET PO SCH (08:12)
[2016-03-02] MEDS: BENZONATATE 100 MG CAPSULE PO SCH ×3 (08:12→20:40)
[2016-03-02] MEDS: METOPROLOL SUCCINATE XL 100 MG TABLET PO SCH ×2 (08:12→20:40)
[2016-03-02] MEDS: DIGOXIN 0.125 MG TABLET PO SCH (12:34)
[2016-03-02] MEDS: ACETAMINOPHEN 325 MG TABLET PO PRN (14:15)
[2016-03-02] MEDS: cefTRIAXone 1,000 MG in SODIUM CHLORIDE 0.9% 100 ML IV SCH (17:15)
--- NOTE | 2016-03-02 18:22 | Cardiology Progress Note ---
Heriberto Hancock Lauren, KING, am scribing for, and in the presence of, Reji Gray MD 18: 22. Assessment and Plan (1) Atrial fibrillation Status: Chronic Assessment and plan: 89-year-old female, CAD, status post POBA, HTN, AF, DDD PM, history of CVAs. Admitted with shortness of breath, suspected bronchitis, A. fib/RVR, lower extremity swelling. No DVT. - CAD. Continue aspirin, Crestor 10 mg qhs. Borderline elevated troponin likely demand ischemia, not symptomatic currently. -AF/RVR. Cont metoprolol 100 mg twice a day, continue digoxin 0.125 mg daily. Cont Eliquis. Rate better controlled. -PM. Normal demand DDD PM function. -BP. Mildly elevated today. -SOB. Bronchitis. History of moderate/severe TR. Increase Lasix to 40 mg IV twice a day. Lungs less congested today. 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 Felipe reports she feels better than she did yesterday, but still does not feel very well. She remains in atrial fibrillation with occasional PVCs, rate is well controlled. She feels tired after working with physical therapy and feels like she ate too much lunch. Exam (Progress Note) - Constitutional Vitals: Period Temp Pulse Resp BP Sys/Quintana Pulse Ox Last 24 Hr 96.1 F-99.6 F 67-104 16-97 125-150/79-90 90-99 General appearance: normal weight, no acute distress - Head Head exam: Present: normocephalic - Eye Eye exam: Absent: conjunctival injection, periorbital swelling, scleral icterus Pupils: Absent: dilated, unequal - ENT ENT exam: Present: normal exam, normal external ear exam - Neck Neck exam: Present: normal inspection. Absent: tenderness - Respiratory Respiratory exam: Present: clear to auscultation bilaterally, decreased breath sounds, prolonged expiratory phase - Cardiovascular Cardiovascular exam: Present: irregular rhythm, systolic murmur. Absent: bradycardia, tachycardia - GI/Abdominal GI/Abdominal exam: Present: normal bowel sounds, soft. Absent: distended, tenderness - Extremities Exam Extremities exam: Present: normal inspection, edema (1+), other (2+ DP Pulses bilaterally) - Neurological Exam Neurological exam: Present: alert, oriented X3, other (grossly intact, no resting or essential tremor) - Psychiatric Psychiatric exam: Present: normal affect, normal mood - Skin Skin exam: Present: normal color, warm, dry. Absent: cyanosis Result/EKG - Labs CBC & BMP: 03/02/16 04:41 03/02/16 04:41 Lab Results: I have reviewed the past 24 hour labs Labs: Laboratory Results - last 24 hr 03/02/16 03/02/16 04:41 04:41 WBC 6.6 RBC 3.51 L Hgb 10.9 L Hct 33.5 L MCV 95.4 MCH 31 MCHC 32.5 RDW 12.8 Plt Count 179 MPV 10.9 Neut % (Auto) 63.7 Lymph % (Auto) 18.4 L Ed[place]ds % (Auto) 13.5 H Eos % (Auto) 3.2 Baso % (Auto) 0.9 H Neut # (Auto) 4.2 Lymph # (Auto) 1.2 L [place] # (Auto) 0.9 H Eos # (Auto) 0.2 Baso # (Auto) 0.1 Immature Gran % 0.3 Nucleated RBC % 0.0 Immature Gran # 0.02 Nucleated RBCs # 0.00 Sodium 137 Potassium 4.7 Chloride 96 L Carbon Dioxide 32 Anion Gap 13.7 BUN 16 Creatinine 0.90 GFR Calculation 56 BUN/Creatinine Ratio 17.00 Glucose 88 Calculated Osmolality 272.8 L Calcium 8.5 - EKG EKG results: interpreted by me EKG shows: atrial fibrillation (with occasional PVC's) Quality Measures - VTE Contraindication to Pharmacological VTE Prophylaxis: Already on Theraputic Agent , No Prophylaxis Needed Isaac Hancock Attila, MD, personally performed the services described in this documentation, ascribed by Esther Louis RN in my presence, and it is both accurate and complete 822 .
--- NOTE | 2016-03-02 19:22 | Hospitalist Progress Note ---
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 Current Visit: No (2) Bronchitis Status: Acute Assessment and plan: Will obtain a chest xray. Repeat Cxray. Breathing treatments. Current Visit: No (3) Atrial fibrillation Status: Chronic Assessment and plan: Continue current management. Current Visit: No Qualifiers: Atrial fibrillation type: chronic Qualified Code(s): I48.2 - Chronic atrial fibrillation Hospitalist: Subjective Interval history: Complains of continuous coughing, no overnight events. Exam - Constitutional Vitals: Period Temp Pulse Resp BP Sys/Quintana Pulse Ox Last 24 Hr 96.1 F-98 F 67-98 16-21 140-150/80-90 90-99 General appearance: no acute distress - Head Head exam: Present: normocephalic, atraumatic - Eye Eye exam: Present: EOMI Pupils: Present: ZULEIKA - ENT ENT exam: Present: normal exam - Neck Neck exam: Present: normal inspection - Respiratory Respiratory exam: Present: clear to auscultation bilaterally. Absent: rhonchi, wheezes - Cardiovascular Cardiovascular exam: Present: regular rate and rhythm. Absent: gallop, rubs, systolic murmur - GI/Abdominal GI/Abdominal exam: Present: normal bowel sounds, soft. Absent: distended, firm , guarding, tenderness, rebound - Extremities Exam Extremities exam: Present: normal inspection. Absent: calf tenderness, edema Results - Labs CBC & BMP: 03/02/16 04:41 03/02/16 04:41 Lab Results: I have reviewed the past 24 hour labs Quality Measures - VTE Contraindication to Pharmacological VTE Prophylaxis: Already on Theraputic Agent , No Prophylaxis Needed
[2016-03-02] MEDS ORDERED: ALBUTEROL/IPRATROPIUM 3 ML NEB RESP TX PRN (19:28)
--- NOTE | 2016-03-02 20:32 | XRay Report ---
XR chest 1V portable Indication: Pneumonia, abnormal chest x-ray Comparison: Chest x-ray dated February 28, 2016 Technique: Single frontal view of the chest Findings: Continued cardiomegaly. Mildly improved right infrahilar opacities suggesting improved pulmonary edema/pneumonitis. There is continued left infrahilar and bibasilar coarse interstitial prominence with mild opacities suggesting residual edema/pneumonitis. Osseous and surrounding soft tissue structures appear grossly unchanged. IMPRESSION: As above. PROCEDURE INTERPRETED AT [facility] DEPARTMENT OF RADIOLOGY Final Report Signed by: Dr Hoang Gunter
[2016-03-02] MEDS: ROSUVASTATIN 10 MG TABLET PO SCH (20:40)
[2016-03-03] MEDS: LEVALBUTEROL 1.25 MG/3 ML NEB RESP TX SCH ×4 (01:01→19:24)
[2016-03-03] MEDS: ASPIRIN EC 81 MG TABLET PO SCH (08:37)
[2016-03-03] MEDS: APIXABAN 2.5 MG TABLET PO SCH ×2 (08:37→21:02)
[2016-03-03] MEDS: FUROSEMIDE 40 MG/4 ML VIAL IV SCH ×2 (08:37→17:51)
[2016-03-03] MEDS: BENZONATATE 100 MG CAPSULE PO SCH ×3 (08:38→21:03)
[2016-03-03] MEDS: METOPROLOL SUCCINATE XL 100 MG TABLET PO SCH ×2 (08:38→21:03)
[2016-03-03] MEDS: PANTOPRAZOLE 40 MG TABLET PO SCH (08:38)
--- NOTE | 2016-03-03 10:21 | Hospitalist Progress Note ---
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 Current Visit: No (2) Bronchitis Status: Acute Assessment and plan: Will obtain a chest xray. Repeat Cxray. Breathing treatments. Current Visit: No (3) Atrial fibrillation Status: Chronic Assessment and plan: Continue current management. Current Visit: No Qualifiers: Atrial fibrillation type: chronic Qualified Code(s): I48.2 - Chronic atrial fibrillation Hospitalist: Subjective Interval history: Patient feels much better this morning. Exam - Constitutional Vitals: Period Temp Pulse Resp BP Sys/Quintana Pulse Ox Last 24 Hr 96.8 F-97.9 F 63-94 18-20 136-164/76-84 92-100 General appearance: no acute distress - Head Head exam: Present: normocephalic, atraumatic - Eye Eye exam: Present: EOMI Pupils: Present: ZULEIKA - ENT ENT exam: Present: normal exam - Neck Neck exam: Present: normal inspection - Respiratory Respiratory exam: Present: clear to auscultation bilaterally. Absent: rhonchi, wheezes - Cardiovascular Cardiovascular exam: Present: regular rate and rhythm. Absent: gallop, rubs, systolic murmur - GI/Abdominal GI/Abdominal exam: Present: normal bowel sounds, soft. Absent: distended, firm , guarding, tenderness, rebound - Extremities Exam Extremities exam: Present: normal inspection. Absent: calf tenderness, edema Results - Labs CBC & BMP: 03/02/16 04:41 03/02/16 04:41 Lab Results: I have reviewed the past 24 hour labs Quality Measures - VTE Contraindication to Pharmacological VTE Prophylaxis: Already on Theraputic Agent , No Prophylaxis Needed
[2016-03-03] MEDS: DIGOXIN 0.125 MG TABLET PO SCH (12:50)
[2016-03-03] MEDS: ACETAMINOPHEN 325 MG TABLET PO PRN (16:19)
--- NOTE | 2016-03-03 17:08 | Cardiology Progress Note ---
Assessment and Plan - Time spent with patient Time spent with patient: Less than 30 minutes (1) Atrial fibrillation Status: Chronic Assessment and plan: Heart rate better controlled. Eliquis was started yesterday. We will check a CBC tomorrow. 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 Admitted with shortness of breath, suspected bronchitis, A. fib/RVR, lower extremity swelling. No DVT. Overnight, her breathing is much improved and she feels dramatically better. She looks very comfortable in the bed. She continues to wear oxygen as needed. Her only complaint this evening is of a mild headache for which she has just received one Tylenol. Vital signs are stable with her blood pressure averaging 108-136 over 65-76. Heart rate averaging 70s and 80s. -CAD. Continue aspirin, Crestor 10 mg qhs. Borderline elevated troponin likely demand ischemia, not symptomatic currently. -AF/RVR. Cont metoprolol 100 mg twice a day, continue digoxin 0.125 mg daily. Cont Eliquis. Rate better controlled. CBC in am -PM. Normal demand DDD PM function. -BP. Improved, stable. -SOB. Bronchitis. History of moderate/severe TR. Tolerating increased ( yesterday) Lasix to 40 mg IV twice a day. According to her daily weight, she has lost 3-1/2 kg overnight Exam (Progress Note) - Constitutional Vitals: Period Temp Pulse Resp BP Sys/Quintana Pulse Ox Last 24 Hr 96.8 F-97.8 F 63-94 17-20 108-164/65-84 92-100 Exam: General: Appears well with no apparent distress. Pleasant and cooperative. Appears comfortable. HEENT: PERRL, normocephalic, atraumatic. Mucous membranes moist. No jaundice noted. Conjunctiva moist and clear, sclerae anicteric Neck: No JVD/HJR, no thyromegaly or lymphadenopathy noted. No carotid bruit appreciated Cardiac: Irregularly irregular rhythm. No murmur rub or gallop. Lungs: Clear to auscultation without accessory muscle use to assist the respiratory pattern. Continues to wear oxygen by nasal cannula. Abdomen: Soft, bowel sounds normoactive. Nontender and nondistended. No abdominal bruit or thrill noted. No masses noted. Musculoskeletal: No fluid collection. Decreased range of motion is noted. Extremities: No clubbing, cyanosis noted. No edema noted. Upper extremity pulses 2+. Lower extremity pulses 2+. Capillary refill less than 3 seconds. Skin: No unusual lesions or rashes. No skin breakdown appreciated. Neuro: Awake, alert and oriented 3. Moves all extremities well without hemiparesis or paralysis. No essential tremor is appreciated. Result/EKG - Labs CBC & BMP: 03/02/16 04:41 03/02/16 04:41 Lab Results: I have reviewed the past 24 hour labs - EKG EKG results: interpreted by me EKG shows: atrial fibrillation Quality Measures - VTE Contraindication to Pharmacological VTE Prophylaxis: Already on Theraputic Agent , No Prophylaxis Needed
[2016-03-03] MEDS: cefTRIAXone 1,000 MG in SODIUM CHLORIDE 0.9% 100 ML IV SCH (17:50)
[2016-03-03] MEDS: ROSUVASTATIN 10 MG TABLET PO SCH (21:02)
[2016-03-04] MEDS: LEVALBUTEROL 1.25 MG/3 ML NEB RESP TX SCH ×3 (00:52→15:00)
[2016-03-04 04:34] LABS: Basophils # 0.1 10*3/uL (0.0-0.2); Basophils % 1.2 % (0.0-0.8); Eosinophils # 0.2 10*3/uL (0.0-0.87); Eosinophils % 3.2 % (0.00-10.9); Hematocrit 32.8 VOL% (35.7-47.0); Hemoglobin 10.9 GM/DL (12.0-16.0); Immature Granulocytes % 0.5 %; Immature Granulocytes Absolute 0.03 #; Lymphocytes % 16.9 % (21.3-54.2); Mean Corpuscular HGB Conc 33.2 GM/DL (32-36); Mean Corpuscular Hemoglobin 31 PG (27-34); Mean Platelet Volume 10.6 FL (9.6-12.0); Monocytes # 0.8 10*3/uL (0.11-0.8); Monocytes % 13.9 % (1.7-12.7); Neutrophils # 3.9 10*3/uL (1.4-7.4); Neutrophils % 64.3 % (38.7-73.9); Platelet Count 255 10*3/uL (130-400); Red Blood Count 3.49 10*6/uL (3.8-5.5); Red Cell Distribution Width 12.5 % (9.3-17.3)
[2016-03-04 05:00] LABS: Calcium 8.2 MG/DL (8.5-10.1); Osmolality,Calculated 280.4 MOS/KG (273-304); Potassium 3.9 MMOL/L (3.5-5.1)
[2016-03-04] MEDS: APIXABAN 2.5 MG TABLET PO SCH (09:50)
[2016-03-04] MEDS: METOPROLOL SUCCINATE XL 100 MG TABLET PO SCH (09:51)
[2016-03-04] MEDS: BENZONATATE 100 MG CAPSULE PO SCH ×2 (09:51→14:36)
[2016-03-04] MEDS: ASPIRIN EC 81 MG TABLET PO SCH (09:51)
[2016-03-04] MEDS: PANTOPRAZOLE 40 MG TABLET PO SCH (09:51)
[2016-03-04] MEDS: FUROSEMIDE 40 MG/4 ML VIAL IV SCH (09:51)
[2016-03-04 12:23] VITALS: BP 118/58
--- NOTE | 2016-03-04 14:16 | Cardiology Progress Note ---
Assessment and Plan (1) Atrial fibrillation Status: Chronic Assessment and plan: 89-year-old female, CAD, status post POBA, HTN, AF, DDD PM, history of CVAs. Admitted with shortness of breath, suspected bronchitis, A. fib/RVR, lower extremity swelling. No DVT. - CAD. Continue aspirin, Crestor 10 mg qhs. Borderline elevated troponin likely demand ischemia, not symptomatic currently. -AF/RVR. Rate now better controlled. Cont metoprolol 100 mg twice a day, continue digoxin 0.125 mg daily. Cont Eliquis. -PM. Normal demand DDD PM function. -HTN. Improved control. -SOB. Bronchitis. History of moderate/severe TR. 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 BP, HR well controlled. Exam (Progress Note) - Constitutional Vitals: Period Temp Pulse Resp BP Sys/Quintana Pulse Ox Last 24 Hr 97.6 F-97.9 F 60-106 16-20 118-149/58-75 87-99 General appearance: normal weight - Head Head exam: Present: normal inspection - Eye Eye exam: Absent: conjunctival injection Pupils: Absent: dilated - ENT ENT exam: Present: normal external ear exam - Neck Neck exam: Present: normal inspection - Respiratory Respiratory exam: Present: clear to auscultation bilaterally - Cardiovascular Cardiovascular exam: Present: irregular rhythm, systolic murmur - GI/Abdominal GI/Abdominal exam: Present: normal bowel sounds - Extremities Exam Extremities exam: Present: normal inspection, normal capillary refill, edema (1+ ) - Back Exam Back exam: Present: normal inspection - Neurological Exam Neurological exam: Present: alert, oriented X3 - Psychiatric Psychiatric exam: Present: normal affect, normal mood - Skin Skin exam: Present: normal color, warm. Absent: cyanosis Result/EKG - Labs CBC & BMP: 03/04/16 02:56 03/04/16 02:56 Lab Results: I have reviewed the past 24 hour labs Labs: Laboratory Results - last 24 hr 03/04/16 03/04/16 03/04/16 02:56 02:56 Unknown WBC 6.0 RBC 3.49 L Hgb 10.9 L Hct 32.8 L MCV 94.0 MCH 31 MCHC 33.2 RDW 12.5 Plt Count 255 D MPV 10.6 Neut % (Auto) 64.3 Lymph % (Auto) 16.9 L Barron % (Auto) 13.9 H Eos % (Auto) 3.2 Baso % (Auto) 1.2 H Neut # (Auto) 3.9 Lymph # (Auto) 1.0 L Barron # (Auto) 0.8 Eos # (Auto) 0.2 Baso # (Auto) 0.1 Immature Gran % 0.5 Nucleated RBC % 0.0 Immature Gran # 0.03 Nucleated RBCs # 0.00 Sodium 140 Potassium 3.9 Chloride 95 L Carbon Dioxide 35 H Anion Gap 13.9 BUN 18 Creatinine 1.10 H GFR Calculation 43 BUN/Creatinine Ratio 16.00 Glucose 92 Calculated Osmolality 280.4 Calcium 8.2 L Digoxin 1.10 - EKG EKG results: interpreted by me Quality Measures - VTE Contraindication to Pharmacological VTE Prophylaxis: Already on Theraputic Agent , No Prophylaxis Needed
[2016-03-04] MEDS: DIGOXIN 0.125 MG TABLET PO SCH (14:36)
[2016-03-04] MEDS: ACETAMINOPHEN 325 MG TABLET PO PRN (14:36)
--- NOTE | 2016-03-04 15:11 | Discharge Summary ---
Hospital Course - Hospital Course Hospital Course: Please see H&P for details surrounding admission. Atrial fibrillation with RVR: Mrs. Felipe was admitted to telemetry floor on IV Lopressor and was continued on her home medication of Eliquis. She was also seen in consultation by cardiology. Cardiology adjusted the patient's home medications by increasing her beta violetta and adding digoxin. By discharge patient was in sinus. Pneumonia, bronchitis: X-ray revealed right infrahilar opacities suggestive of pulmonary edema versus pneumonitis. She was initiated on antibiotics and breathing treatments with resolution of her symptoms. She will continue antibiotics at discharge. By discharge patient met maximum benefit from hospitalization. 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 Status: Acute (2) Bronchitis Status: Acute (3) Atrial fibrillation Status: Chronic Specialty Discharge - Follow Up or Referrals Follow up with: Iker Serra MD [Physician] - 2 Weeks Discharge Plan - Discharge Data Disposition: Disch To Home/Self Care Condition at Discharge: Stable Discharge Diet: advance to your usual diet Activity: resume usual activities as tolerated - Discharge Medications New Digoxin Tab [Lanoxin Tab] 0.125 mg PO DAILY@1300 #30 tablet Furosemide Tab [Lasix Tab] 40 mg PO BID DIURETIC #60 tablet Metoprolol Succinate Xl [Toprol Xl] 100 mg PO BID #60 tablet Rosuvastatin [Crestor] 10 mg PO BEDTIME #30 tablet Amoxicillin 500 mg PO BID #6 tablet Doxycycline Monohydrate 100 mg PO BID #10 capsule Continue Calcium Carbonate/Vitamin D3 [Calcium 600-Vit D3 800 Tablet] 1 tablet PO DAILY Ascorbic Acid [Vitamin C] 1,000 mg PO DAILY Mv-Mn/FA/Vit K/Lycop/Lut/Zeaxa [Ocuvite Eye + Multi Tablet] 1 capsule PO DAILY Potassium Chloride 10 meq PO DAILY Aspirin EC Tab 81 mg PO DAILY Apixaban [Eliquis] 2.5 mg PO BID tablet Omeprazole [Prilosec] 20 mg PO DAILY Pregabalin [Lyrica] 75 mg PO BEDTIME Benzonatate [Tessalon] 200 mg PO TID #30 capsule Benzonatate 100 mg PO Q8H PRN PRN Reason: Cough Hydrocodone/Acetaminophen [Hydrocodon-Acetaminophen 5-325] 1 tablet PO Q4H PRN PRN Reason: Pain Moderate (4-7) Discontinued Metoprolol Tartrate 75 mg PO BID W/MEALS amLODIPine [Norvasc] 5 mg PO DAILY #30 tablet hydrALAZINE TAB [Apresoline Tab] 50 mg PO BID Levofloxacin Tab [Levaquin Tab] 500 mg PO DAILY #7 tablet Furosemide 20 mg PO DAILY - Follow Up or Referral Follow Up: Iker Serra MD [Physician] - 2 Weeks - Forms/Instructions Instructions: Heart Failure (GEN), Atrial Fibrillation (GEN), Chest Pain (GEN) , Acute Bronchitis (GEN) Exam - Constitutional Vitals: Period Temp Pulse Resp BP Sys/Quintana Pulse Ox Last 24 Hr 97.6 F-97.9 F 60-106 16-20 118-149/58-75 87-99 General appearance: normal weight, no acute distress - Head Head exam: Present: normal inspection, normocephalic, atraumatic - Eye Eye exam: Present: EOMI Pupils: Present: ZULEIKA - ENT ENT exam: Present: normal exam - Neck Neck exam: Present: normal inspection - Respiratory Respiratory exam: Present: clear to auscultation bilaterally - Cardiovascular Cardiovascular exam: Present: regular rate and rhythm - GI/Abdominal GI/Abdominal exam: Present: normal bowel sounds - Extremities Exam Extremities exam: Present: normal inspection Discharge Results Labs on day of discharge: Labs from last 24 hours 03/04/16 03/04/16 03/04/16 Unknown 02:56 02:56 WBC 6.0 RBC 3.49 L Hgb 10.9 L Hct 32.8 L MCV 94.0 MCH 31 MCHC 33.2 RDW 12.5 Plt Count 255 D MPV 10.6 Neut % (Auto) 64.3 Lymph % (Auto) 16.9 L Edwards % (Auto) 13.9 H Eos % (Auto) 3.2 Baso % (Auto) 1.2 H Neut # (Auto) 3.9 Lymph # (Auto) 1.0 L Edwards # (Auto) 0.8 Eos # (Auto) 0.2 Baso # (Auto) 0.1 Immature Gran % 0.5 Nucleated RBC % 0.0 Immature Gran # 0.03 Nucleated RBCs # 0.00 Sodium 140 Potassium 3.9 Chloride 95 L Carbon Dioxide 35 H Anion Gap 13.9 BUN 18 Creatinine 1.10 H GFR Calculation 43 BUN/Creatinine Ratio 16.00 Glucose 92 Calculated Osmolality 280.4 Calcium 8.2 L Digoxin 1.10 DS: Provider Date of admission: 02/28/16 17:19 Primary care physician: . No PCP Attending physician on admission: Alexia Medina Consults: 02/28/16 17:40 Consult to Physician [CONS] Routine Comment: afib Consulting Provider: Cardiology - [facility] 03/01/16 11:12 Consult to Physical Therapy [CONS] Routine Reason for Physical Therapy: Evaluate and Treat Consult Comment: pt on blood thinner and need to asses risk of fall/any rehab needs Discharging clinician: Melissa Welch MD Expected date of discharge: 03/04/16
[2016-03-04] MEDS ORDERED: FUROSEMIDE 40 MG TABLET PO SCH (16:00)
== END 2016-03-04 16:30 | disposition home or self-care (01) | DRG 308 ==
LOC: N.ED 15:09 → N.EDINP 17:19 → N.TELEN 17:36
PROVIDERS: ADMIT Student in an Organized Health Care Education/Training Program; ATTEND Student in an Organized Health Care Education/Training Program